=== PATIENT | female | born 1980 | race Caucasian/White ===

== ENCOUNTER 2018-01-26 09:11 | Observation (INO) | payer SELFPAY ==
[~2018-01-26] VITALS: Ht 152.4 cm; Wt 52.2 kg
[2018-01-26] MEDS ORDERED: THIAMINE HCL 200 MG/2 ML INJ IVP ONE (09:15)
[2018-01-26] MEDS ORDERED: ONDANSETRON 4 MG/2 ML VIAL IVP ONE (09:15)
[2018-01-26] MEDS ORDERED: PANTOPRAZOLE SOD(*)40 MG VIAL 80 MG in NS(*) 0.9% 100 ML BAG 100 ML IV SCH (09:15)
[2018-01-26] MEDS ORDERED: PANTOPRAZOLE SOD(*)40 MG VIAL 80 MG in NS(*) 0.9% 100 ML BAG 100 ML IVPB ONE (09:15)
[2018-01-26] MEDS ORDERED: OCTREOTIDE IVP ONE (09:20)
[2018-01-26] MEDS ORDERED: OCTREOTIDE ACE 200 MCG/ML 5 ML 200 MCG in NS(*) 0.9% 100 ML BAG 99 ML IVPB ONE (09:20)
[2018-01-26] MEDS ORDERED: OXYC-865 PO (09:21)
[2018-01-26] MEDS ORDERED: IBUP800T37 PO (09:21)
--- NOTE | 2018-01-26 09:33 | ER Report ---
History and Physical Time Seen By MD: 09:27 Hx. of Stated Complaint: VOMITING BLOOD AND HAVING BLACK STOOLS SINCE APPROX 0230. REPORTS TYPICALLY DRINKS HALF A PINT OF VODKA PER DAY AND YESTERDAY DRANK ABOUT A PINT. HPI/ROS CHIEF COMPLAINT: Vomiting blood; black tarry stools HISTORY OF PRESENT ILLNESS: Patient is a 37-year-old female who presents to emergency department with approximately 12 hours worth of vomiting blood and dark tarry stools. Patient states that she drinks alcohol daily 1/2-1 pint of vodka daily; patient is a pack-a-day smoker. Patient has a history of long-term alcohol use and abuse. Last drink was approximately 12 hours ago. Patient has never had vomiting blood before. Patient denies fevers or chills. She currently denies any abdominal pain does report nausea and a sensation that she has to throw up. REVIEW OF SYSTEMS: Constitutional: No fever, no chills. Eyes: No discharge. ENT: No sore throat. Cardiovascular: No chest pain, no palpitations. Respiratory: No cough, no shortness of breath. Gastrointestinal: Vomiting blood, black tarry stools Genitourinary: No hematuria. Musculoskeletal: No back pain. Skin: No rashes. Neurological: No headache. Allergies: Coded Allergies: No Known Drug Allergies (Unverified , 01/26/18) Home Meds Reported Medications Oxycodone Hcl/Acetaminophen (PERCOCET 5-325 MG TABLET) 1 Each Tablet, 1 EACH PO Q8H, TAB 01/26/18 Ibuprofen (IBUPROFEN) 800 Mg Tablet, 1 TAB PO Q8H, TAB 01/26/18 Hx Smoking: Yes Smoking Status: Current: Every Day Smoker Hx Substance Use Disorder: No Hx Alcohol Use: Yes (HALF PINT OF VODKA PER DAY. ) Constitutional Vital Sign - Last 24 Hours 01/26/18 01/26/18 01/26/18 01/26/18 09:11 09:16 09:18 09:18 Temp 96.5 Pulse ? 86 Resp 18 B/P (MAP) 105/87 105/87 (93) Pulse Ox 99 O2 Delivery Room Air 01/26/18 01/26/18 01/26/18 01/26/18 09:21 09:26 09:30 09:31 Pulse 88 101 102 B/P (MAP) 103/77 (86) 105/65 (78) Pulse Ox 98 89 01/26/18 01/26/18 01/26/18 01/26/18 09:36 09:41 09:46 09:47 Temp 99.5 Pulse 96 82 95 01/26/18 01/26/18 01/26/18 01/26/18 09:50 09:51 09:56 10:00 Pulse 105 ??? B/P (MAP) 93/78 (83) 103/73 (83) Pulse Ox 96 01/26/18 01/26/18 01/26/18 01/26/18 10:01 10:06 10:10 10:20 Pulse 89 99 B/P (MAP) 122/98 (106) 99/81 (87) 01/26/18 01/26/18 10:30 10:40 Pulse 89 B/P (MAP) 105/76 (86) 118/82 (94) Intake and Output 01/26/18 01/26/18 01/27/18 15:00 23:00 07:00 Intake Total 1100 ml Balance 1100 ml Physical Exam General/Constitutional: Patient is awake, alert, nontoxic and in no acute respiratory distress. Head: Normocephalic and atraumatic. Eyes: Conjunctival clear, Pupils are equal and reactive to light. Extraocular muscles are intact and symmetrical. Sclera are clear and anicteric. Ears:External canals are clear. Tympanic membranes are clear with normal landmarks and light reflex. Nares: No rhinorrhea or bleeding. Turbinates are pink and moist. Oropharyngeal: Mucous membranes are moist. There is no pharyngeal erythema or exudate Neck: Supple, no adenopathy. Cardiovascular: Heart is regular rate and rhythm without audible murmurs, rubs or gallops. Pulmonary: Lungs are clear to auscultation bilaterally. There are no wheezes, rales, or rhonchi. Chest rise is symmetrical Abdomen: Soft, nontender, no guarding or peritoneal signs. Extremities: No gross deformities, No peripheral cyanosis. Able to move all 4 extremities. Neuro: Alert and oriented X3 Skin: No rashes, skin is warm dry and well perfused. Medical Decision Making Data Points Result Diagram: 01/26/1892401/26/18924 Laboratory Hematology Test 01/26/18 09:20 01/26/18 09:25 01/26/18 09:44 Urine Color Yellow Urine Clarity Slightly-cloudy Urine pH 6.0 pH (4.8-9.5) Urine Specific [place] 1.023 Urine Protein Negative mg/dL (NEGATIVE) Urine Glucose (UA) Negative mg/dL (NEGATIVE) Urine Ketones 80 mg/dL (NEGATIVE) Urine Blood Negative (NEGATIVE) Urine Nitrite Negative (NEGATIVE) Urine Bilirubin Negative (NEGATIVE) Urine Urobilinogen Negative mg/dL (0.2-1.9) Urine Leukocyte Esterase Negative (NEGATIVE) Urine RBC <1 /HPF (0-2/HPF) Urine WBC 3 /HPF (0-5/HPF) Urine Squamous Epithelial Cells Many /LPF (</=FEW) Urine Bacteria Negative /HPF (NONE-FEW) Urine Hyaline Casts Few /LPF (NONE-FEW) Urine Mucus Few /HPF (NONE-FEW) Urine Opiates Screen Positive Urine Barbiturates Screen Negative Ur Tricyclic Antidepressants Screen Negative Urine Phencyclidine Screen Negative Urine Amphetamines Screen Negative Urine Benzodiazepines Screen Negative Urine Cocaine Screen Negative Urine Cannabinoids Screen Negative Red Blood Count 3.47 M/uL (4.17-5.56) Mean Corpuscular Volume 104.6 fL (80.0-96.0) Mean Corpuscular Hemoglobin 36.8 pg (26.0-33.0) Mean Corpuscular Hemoglobin Concent 35.2 g/dL (32.0-36.0) Red Cell Distribution Width 13.9 % (11.5-14.5) Mean Platelet Volume 8.7 fL (7.2-11.1) Neutrophils (%) (Auto) 84.7 % (39.4-72.5) Lymphocytes (%) (Auto) 10.2 % (17.6-49.6) Monocytes (%) (Auto) 4.3 % (4.1-12.4) Eosinophils (%) (Auto) 0.1 % (0.4-6.7) Basophils (%) (Auto) 0.7 % (0.3-1.4) Nucleated RBC Relative Count (auto) 0.0 /100WBC Neutrophils # (Auto) 10.2 K/uL (2.0-7.4) Lymphocytes # (Auto) 1.2 K/uL (1.3-3.6) Monocytes # (Auto) 0.5 K/uL (0.3-1.0) Eosinophils # (Auto) 0.0 K/uL (0.0-0.5) Basophils # (Auto) 0.1 K/uL (0.0-0.1) Nucleated RBC Absolute Count (auto) 0.00 K/uL Peripheral Blood Smear Yes Y/N Prothrombin Time 13.2 seconds (12.0-14.4) Prothromb Time International Ratio 1.00 Activated Partial Thromboplast Time 27 seconds (23-35) Sodium Level 139 mmol/L (137-145) Potassium Level 3.2 mmol/L (3.5-5.0) Chloride Level 99 mmol/L (98-107) Carbon Dioxide Level 19 mmol/L (22-31) Blood Urea Nitrogen 24 mg/dl (7-18) Creatinine 0.70 mg/dl (0.52-1.04) Glomerular Filtration Rate Calc > 60.0 Random Glucose 108 mg/dl (75-110) Calcium Level 8.9 mg/dl (8.4-10.2) Magnesium Level 1.2 mg/dl (1.7-2.2) Total Bilirubin 0.8 mg/dl (0.2-1.3) Aspartate Amino Transf (AST/SGOT) 83 U/L (0-35) Alanine Aminotransferase (ALT/SGPT) 50 U/L (0-56) Alkaline Phosphatase 90 U/L (0-126) Total Protein 7.5 gm/dl (6.3-8.2) Albumin 4.3 g/dl (3.5-5.0) Lipase 51 U/L (23-300) Human Chorionic Gonadotropin, Qual Negative (NEGATIVE) Salicylates Level < 10 mg/L Salicylate Last Dose Date unk Acetaminophen Level < 10 ug/ml Serum Alcohol 24 mg/dl Helicobacter pylori IgG Antibody Negative (NEGATIVE) Stool Occult Blood (IFOB) Negative (NEGATIVE) Chemistry Test 01/26/18 09:20 01/26/18 09:25 01/26/18 09:44 Urine Color Yellow Urine Clarity Slightly-cloudy Urine pH 6.0 pH (4.8-9.5) Urine Specific [place] 1.023 Urine Protein Negative mg/dL (NEGATIVE) Urine Glucose (UA) Negative mg/dL (NEGATIVE) Urine Ketones 80 mg/dL (NEGATIVE) Urine Blood Negative (NEGATIVE) Urine Nitrite Negative (NEGATIVE) Urine Bilirubin Negative (NEGATIVE) Urine Urobilinogen Negative mg/dL (0.2-1.9) Urine Leukocyte Esterase Negative (NEGATIVE) Urine RBC <1 /HPF (0-2/HPF) Urine WBC 3 /HPF (0-5/HPF) Urine Squamous Epithelial Cells Many /LPF (</=FEW) Urine Bacteria Negative /HPF (NONE-FEW) Urine Hyaline Casts Few /LPF (NONE-FEW) Urine Mucus Few /HPF (NONE-FEW) Urine Opiates Screen Positive Urine Barbiturates Screen Negative Ur Tricyclic Antidepressants Screen Negative Urine Phencyclidine Screen Negative Urine Amphetamines Screen Negative Urine Benzodiazepines Screen Negative Urine Cocaine Screen Negative Urine Cannabinoids Screen Negative White Blood Count 12.1 k/uL (4.5-11.0) Red Blood Count 3.47 M/uL (4.17-5.56) Hemoglobin 12.8 g/dL (12.0-16.0) Hematocrit 36.2 % (34.0-47.0) Mean Corpuscular Volume 104.6 fL (80.0-96.0) Mean Corpuscular Hemoglobin 36.8 pg (26.0-33.0) Mean Corpuscular Hemoglobin Concent 35.2 g/dL (32.0-36.0) Red Cell Distribution Width 13.9 % (11.5-14.5) Platelet Count 187 K/uL (150-450) Mean Platelet Volume 8.7 fL (7.2-11.1) Neutrophils (%) (Auto) 84.7 % (39.4-72.5) Lymphocytes (%) (Auto) 10.2 % (17.6-49.6) Monocytes (%) (Auto) 4.3 % (4.1-12.4) Eosinophils (%) (Auto) 0.1 % (0.4-6.7) Basophils (%) (Auto) 0.7 % (0.3-1.4) Nucleated RBC Relative Count (auto) 0.0 /100WBC Neutrophils # (Auto) 10.2 K/uL (2.0-7.4) Lymphocytes # (Auto) 1.2 K/uL (1.3-3.6) Monocytes # (Auto) 0.5 K/uL (0.3-1.0) Eosinophils # (Auto) 0.0 K/uL (0.0-0.5) Basophils # (Auto) 0.1 K/uL (0.0-0.1) Nucleated RBC Absolute Count (auto) 0.00 K/uL Peripheral Blood Smear Yes Y/N Prothrombin Time 13.2 seconds (12.0-14.4) Prothromb Time International Ratio 1.00 Activated Partial Thromboplast Time 27 seconds (23-35) Glomerular Filtration Rate Calc > 60.0 Calcium Level 8.9 mg/dl (8.4-10.2) Magnesium Level 1.2 mg/dl (1.7-2.2) Total Bilirubin 0.8 mg/dl (0.2-1.3) Aspartate Amino Transf (AST/SGOT) 83 U/L (0-35) Alanine Aminotransferase (ALT/SGPT) 50 U/L (0-56) Alkaline Phosphatase 90 U/L (0-126) Total Protein 7.5 gm/dl (6.3-8.2) Albumin 4.3 g/dl (3.5-5.0) Lipase 51 U/L (23-300) Human Chorionic Gonadotropin, Qual Negative (NEGATIVE) Salicylates Level < 10 mg/L Salicylate Last Dose Date unk Acetaminophen Level < 10 ug/ml Serum Alcohol 24 mg/dl Helicobacter pylori IgG Antibody Negative (NEGATIVE) Stool Occult Blood (IFOB) Negative (NEGATIVE) Coagulation Test 01/26/18 09:25 Prothrombin Time 13.2 seconds Prothromb Time International Ratio 1.00 Activated Partial Thromboplast Time 27 seconds Toxicology Test 01/26/18 09:20 01/26/18 09:25 Urine Opiates Screen Positive Urine Barbiturates Screen Negative Ur Tricyclic Antidepressants Screen Negative Urine Phencyclidine Screen Negative Urine Amphetamines Screen Negative Urine Benzodiazepines Screen Negative Urine Cocaine Screen Negative Urine Cannabinoids Screen Negative Salicylates Level < 10 mg/L Salicylate Last Dose Date unk Acetaminophen Level < 10 ug/ml Serum Alcohol 24 mg/dl Urinalysis Test 01/26/18 09:20 Urine Color Yellow Urine Clarity Slightly-cloudy Urine pH 6.0 pH (4.8-9.5) Urine Specific [place] 1.023 Urine Protein Negative mg/dL (NEGATIVE) Urine Glucose (UA) Negative mg/dL (NEGATIVE) Urine Ketones 80 mg/dL (NEGATIVE) Urine Blood Negative (NEGATIVE) Urine Nitrite Negative (NEGATIVE) Urine Bilirubin Negative (NEGATIVE) Urine Urobilinogen Negative mg/dL (0.2-1.9) Urine Leukocyte Esterase Negative (NEGATIVE) Urine RBC <1 /HPF (0-2/HPF) Urine WBC 3 /HPF (0-5/HPF) Urine Squamous Epithelial Cells Many /LPF (</=FEW) Urine Bacteria Negative /HPF (NONE-FEW) Urine Hyaline Casts Few /LPF (NONE-FEW) Urine Mucus Few /HPF (NONE-FEW) EKG/Imaging EKG Interpretation EKG shows a normal sinus rhythm with ventricular rate of 87 bpm. Monitor Interpretation: Normal Sinus Rhythm ED Course/Re-evaluation Clinical Indication for ER IV: IV Access ED Course 01/26/2018 9:36:09 am patient with likely upper GI hemorrhage related to alcohol abuse. This could represent gastric ulcer or duodenal ulcer or perhaps esophageal varices. Plan at this time will be to obtain to large for IV access. We will give a Protonix load followed by a drip at 8 mg per hour. We will start octreotide with a 50 g bolus followed by 15 echograms per hour. Patient will receive thiamine IV 100 mg. We will perform a abdominal workup including CBC electrolytes LFTs coagulation panel lipase amylase serum serum alcohol serum acetaminophen and salicylate levels will also obtain occult stool sample for blood. Patient will likely require admission 01/26/2018 9:48:43 am I spoke with Dr. Pacheco who is research contracts supervisor for general surgery and he states he would be able to perform endoscopy if the need arises. Re-evaluation 01/26/2018 10:37:56 am patient continues to be hemodynamically stable without any further episodes of emesis. I had a 5-10 minute discussion with the patient and family with regard to her alcohol use and suspected abuse. I further describe how that she is at high risk for future alcohol-related problems which could dramatically shorten her life span. I did discuss that she will be admitted medically at this time but that I did discuss with the on-call hospitalist that they will offer potential detoxification treatment for alcohol as well as long-term aftercare help maintain sobriety. Decision to Disposition Date: Jan 26, 2018 Decision to Disposition Time: 10:38 Depart Departure Latest Vital Signs Vital Signs Date Time Temp Pulse Resp B/P (MAP) Pulse Ox O2 Delivery O2 Flow Rate FiO2 01/26/18 10:40 118/82 (94) 01/26/18 10:30 89 01/26/18 09:56 96 01/26/18 09:47 99.5 01/26/18 09:18 18 Room Air Impression: Primary Impression: Alcohol abuse Additional Impressions: Upper gastrointestinal bleed Hypomagnesemia Condition: Improved Disposition: Admitted from ER (to med surg) Problem Qualifiers JAIMEE CASEY MD Jan 26, 2018 09:33
[2018-01-26 09:34] LABS: PLATELET COUNT, AUTOMATED 187 K/uL (150-450)
[2018-01-26] MEDS ORDERED: OCTREOTIDE ACE 200 MCG/ML 5 ML VIAL IVP ONE (09:40)
--- NOTE | 2018-01-26 09:42 | EKG ---
FACILITY: PATIENT NAME: GUERRERO PRADO : [id number] MR: [id number] V: [id number] EXAM DATE: ORDERING PHYSICIAN: JAIMEE CASEY TECHNOLOGIST: KISHOR Wagoner Reason : VOMITNG BLOOD Blood Pressure : / mmHG Vent. Rate : 087 BPM Atrial Rate : 087 BPM P-R Int : 134 ms QRS Dur : 068 ms QT Int : 380 ms P-R-T Axes : 076 080 061 degrees QTc Int : 457 ms Normal sinus rhythm with sinus arrhythmia ST abnormality, possible digitalis effect Abnormal ECG No previous ECGs available Confirmed by CARRIE BOONE ([id number]) on 01/26/2018 1:01:28 PM Referred By: JACINTO Confirmed By:CARRIE BOONE
[2018-01-26] MEDS ORDERED: NS(*) 0.9% 1000 ML BAG 1,000 ML IV ONE (10:25)
--- NOTE | 2018-01-26 10:40 | RADIOLOGY IMAGING REPORT ---
FACILITY: [facility] PATIENT NAME: Tram Fitzpatrick : 1980 MR: [id number] V: [id number] EXAM DATE: ORDERING PHYSICIAN: JAIMEE CASEY TECHNOLOGIST: Location: [facility] [place] Patient: Tram Fitzpatrick : 1980 Visit/Account:[id number] Date of Sevice: 01/26/2018 CHEST SINGLE AP Indication: vomiting blood Comparison: None. Findings: Lungs: Clear. Mediastinum/pulmonary vasculature: Heart size and pulmonary vasculature are normal. Bones/soft tissues: Normal. IMPRESSION: Clear lungs. Report Dictated By: Danie Almeida at 01/26/2018 10:36 AM Report E-Signed By: Danie Almeida at 01/26/2018 10:37 AM WSN:[id number]
[2018-01-26 11:03] VITALS: BP 104/81
[2018-01-26] MEDS ORDERED: DIAZEPAM 10 MG TAB PO PRN ×2 (12:55)
[2018-01-26] MEDS ORDERED: ONDANSETRON 4 MG/2 ML VIAL IVP PRN (12:55)
--- NOTE | 2018-01-26 13:00 | History & Physical ---
History of Present Illness Chief Complaint Vomiting blood History of Present Illness This patient presented to the emergency room complaining of vomiting blood. She reports that she is a heavy drinker and regularly consumes 1/2 to 1 pint of vodka daily. Last night she had two episodes of vomiting blood. She also reports an episode of black tarry stools. She denies any abdominal pain or heart burn and has not had any further episodes. History Problems: (1) Alcohol abuse Status: Acute Home Meds Reported Medications Oxycodone Hcl/Acetaminophen (PERCOCET 5-325 MG TABLET) 1 Each Tablet, 1 EACH PO Q8H, TAB 01/26/18 Ibuprofen (IBUPROFEN) 800 Mg Tablet, 1 TAB PO Q8H, TAB 01/26/18 Allergies: Coded Allergies: No Known Drug Allergies (Unverified , 01/26/18) Hx Smoking: Yes (1 PCK EVERY 2 DAYS) Smoking Status: Current: Every Day Smoker Hx Alcohol Use: Yes (PINT OF VODKA PER DAY. ) Alcohol Withdrawl Symptoms: Tremors, Heart Racing, Sweating Hx Substance Use Disorder: No Review of Systems All Systems Reviewed/Normal: Yes, Except as Noted Gastrointestinal: Hematemesis, Melena Exam Vital Signs Vital Signs Date Time Temp Pulse Resp B/P (MAP) Pulse Ox O2 Delivery O2 Flow Rate FiO2 01/26/18 11:03 98.2 92 16 104/81 (89) 93 Room Air Neuro: No Gross deficits Eyes: PERRLA Cardiovascular: Regular Rate and Rhythm Respiratory: Clear to Auscultation GI: Abd Soft and Non-Tender Extremities: No Edema Integumentary: No Jaundice, No Pallor, No Cyanosis Medical Decision Making Data Points Result Diagram: 01/26/1892401/26/18924 Assessment and Plan Problems: (1) Upper gastrointestinal bleed Status: Acute Assessment & Plan: She reports 2 episodes of hematemesis after drinking heavily and one episode of dark stools. Her Hgb is currently stable and she does not have any ongoing symptoms. She does report relief after receiving Protonix. We will place her on high dose Protonix and repeat a Hgb in the morning. (2) Alcohol abuse Status: Acute Assessment & Plan: She has been started on CIWA protocol and started on thiamine. Venous Thromboembolism Antithrombotics Is Pt On Any Antithrombotics?: No Exam Sepsis Risk: No Definite Risk CARRIE BOONE 18, 2018 13:00
[2018-01-26 13:07] VITALS: BP 117/84
[2018-01-26 13:10] VITALS: BP 117/84
[2018-01-26 15:39] VITALS: BP 131/81
[2018-01-26 19:45] VITALS: BP 123/87
[2018-01-26] MEDS: PANTOPRAZOLE SOD 40 MG TABEC PO SCH (21:11)
[2018-01-26 23:01] VITALS: BP 136/95
[2018-01-27 03:28] VITALS: BP 106/88
[2018-01-27 06:10] LABS: PLATELET COUNT, AUTOMATED 149 K/uL (150-450)
[2018-01-27 06:46] VITALS: BP 111/79
[2018-01-27] MEDS: PANTOPRAZOLE SOD 40 MG TABEC PO SCH (08:20)
[2018-01-27] MEDS ORDERED: THIAMINE HCL 100 MG TAB PO SCH (09:00)
[2018-01-27] MEDS ORDERED: PANT40TA65 PO (10:07)
--- NOTE | 2018-01-27 10:37 | Hospitalist Depart ---
Discharge Summary Reason for Hosp/Final Diag: (1) Upper gastrointestinal bleed Status: Acute Hospital Course & Plan: She was admitted after having two episodes of hematemesis after drinking heavily and one episode of dark stools. She received Octreotide in the emergency department and Protonix during her stay. Her Hgb is currently stable and she does not have any ongoing symptoms. She does report relief after receiving Protonix. She will continue Protonix daily and will follow up with general surgery. She requests to see Dr Kaplan. (2) Alcohol abuse Status: Acute Hospital Course & Plan: She did not require any management for alcohol withdraw. Departure Weight (Pounds): 115 Result Diagram: 01/27/18 0554 01/26/18 0925 Condition: Improved Discharge: Home, Self Care Discharge Instructions Home Meds Active Scripts Pantoprazole Sodium (PANTOPRAZOLE SODIUM) 40 Mg Tablet.dr, 40 MG PO QDAY for 30 Days, #30 TAB 0 Refills Prov:YANETH DEL VALLE 01/27/18 Discontinued Reported Medications Oxycodone Hcl/Acetaminophen (PERCOCET 5-325 MG TABLET) 1 Each Tablet, 1 EACH PO Q8H, TAB 01/26/18 Ibuprofen (IBUPROFEN) 800 Mg Tablet, 1 TAB PO Q8H, TAB 01/26/18 Diet: Regular Activity: As Tolerated Special Instructions: Abstain from alcohol. See medical treatment if symptoms return or worsen. Follow-up with alcohol treatment opptions in the community. Copies to: AMA AWAD MD; CARRIE KAPLAN MD Venous Thromboembolism Antithrombotics Is Pt On Any Antithrombotics?: No YANETH DEL VALLE Jan 27, 2018 10:37
[2018-01-29] MEDS ORDERED: INFLUENZA VIRUS VAC 0.5 ML SYR IM ONLY ONE (09:00)
== END 2018-01-27 10:07 | disposition home or self-care (01) ==
LOC: ER 09:30 → MED 10:46 → INTOOBSV 10:46
PROVIDERS: ADMIT Family Medicine; ATTEND Family Medicine
DX: K92.2 Gastrointestinal hemorrhage, unspecified (principal); F10.10 Alcohol abuse, uncomplicated; E83.42 Hypomagnesemia
CPT/HCPCS: 36415; 71045; 80305; 80320; 80329; 81001; 82274; 83690; 83735; 84703; 85025; 85610; 85730; 86677; 86850; 86900; 86901; 93005; 99285; C9113; G0378; J2354; J2405; J3411; J7030; J7050; 82040; 82247; 82310; 82374; 82435; 82565; 82947; 84075; 84132; 84155; 84295; 84450; 84460; 84520; 96365; 96367; 96375